=== PATIENT | female | born 2000 | race Caucasian/White ===

== ENCOUNTER 2020-06-09 18:38 | Emergency (ER) | payer BC ==
[~2020-06-09] VITALS: Ht 167.6 cm; Wt 77.3 kg
[2020-06-09 20:00] VITALS: BP 123/88; PULSE 109; TEMP 98.4
== END 2020-06-09 20:03 | disposition home or self-care (01) ==
LOC: COL.ER 18:38
DX: S61.211A Laceration without foreign body of left index finger without damage to nail, initial encounter (principal); Z88.1 Allergy status to other antibiotic agents; W26.8XXA Contact with other sharp object(s), not elsewhere classified, initial encounter